=== PATIENT | female | born 1960 | race Two or more races ===

== ENCOUNTER 2016-04-27 13:30 | Emergency (ER) | payer OTHER ==
[~2016-04-27] VITALS: Ht 160 cm; Wt 66.7 kg
[2016-04-27 13:30] VITALS: BP 135/78
[~2016-04-27 13:30] MED LIST: ESOM40CA PO; FLUT1DIS IH; GLIP10TA11 PO; INTE0.3K3 SQ; ROSU20TA PO; TRAM50TA2 PO; januvia PO
== END 2016-04-27 14:17 | disposition home or self-care (01) ==
LOC: ER 13:31
DX: L30.4 Erythema intertrigo (principal); I10 Essential (primary) hypertension; E11.9 Type 2 diabetes mellitus without complications; G35 Multiple sclerosis
CPT/HCPCS: 99283; A4606; Z7610

== ENCOUNTER 2017-04-01 08:44 | Emergency (ER) | payer OTHER ==
[~2017-04-01] VITALS: Ht 165.1 cm; Wt 68.0 kg
[2017-04-01] MEDS ORDERED: FLUORESCEIN SODIUM OPHTH 1 EA STRIP ONE (09:06)
[2017-04-01] MEDS ORDERED: TETRACAINE HCL/PF 0.5% UD 2 ML BOTTLE ONE (09:06)
[2017-04-01] MEDS ORDERED: FLUORESCEIN SODIUM OPHTH 1 EA STRIP OP ONE (09:30)
[2017-04-01] MEDS ORDERED: TETRACAINE HCL/PF 0.5% UD 2 ML BOTTLE OP ONE (09:30)
[2017-04-01 09:53] VITALS: BP 113/74
--- NOTE | 2017-04-01 09:53 | NUR ---
Patient discharged to home in stable condition. Written and verbal after care instructions given. Patient verbalizes understanding of instruction.
== END 2017-04-01 09:54 | disposition home or self-care (01) ==
LOC: ER 08:46
DX: S05.01XA Injury of conjunctiva and corneal abrasion without foreign body, right eye, initial encounter (principal); I10 Essential (primary) hypertension; E11.9 Type 2 diabetes mellitus without complications; Z95.1 Presence of aortocoronary bypass graft; X58.XXXA Exposure to other specified factors, initial encounter; Y93.89 Activity, other specified; Y92.89 Other specified places as the place of occurrence of the external cause; Y99.8 Other external cause status
CPT/HCPCS: 99283; A4606; Z7610